=== PATIENT | male | born 1980 | race Caucasian/White ===

== ENCOUNTER 2016-12-17 06:17 | Day surgery (SDC) | payer OTHER ==
[2016-12-17] MEDS ORDERED: LACTATED RINGERS 1,000 ML IV ONE (06:44)
[2016-12-17] MEDS ORDERED: MIDAZOLAM 2 MG/2 ML VIAL IVP ONE (08:00)
[2016-12-17] MEDS ORDERED: fentaNYL 100 MCG/2 ML VIAL IVP ONE (08:00)
--- NOTE | 2016-12-17 08:54 | SURGERY HX AND PHYSICAL(T) ---
Surgical History & Physical - PMH/PSH/Social Hx Does the pt have a hx of MRSA?: No Eyes, Ears, Nose, Throat: None Cardiovascular: Other Respiratory: None Skin: None Endocrine/Autoimmune: None Gastrointestinal: GERD, Other Urinary: None Musculoskeletal: Osteoarthritis, Chronic back pain Psychiatric: None Orthopedic: ACL reconstruction Cardiothoracic: Vascular surgery, Other Eyes Ears Nose Throat (EENT): Other - Home Meds and Allergies Home Medications: Aspirin [Adult Low Dose Aspirin EC] 81 mg PO PRN PRN 12/14/16 Gabapentin 1 tab PO TID 12/14/16 Omeprazole [PriLOSEC] 20 mg PO PRN PRN 12/14/16 DULoxetine [Cymbalta] 20 mg ORAL DAILY 12/17/16 Allergies/Adverse Reactions: Allergies Allergy/AdvReac Type Severity Reaction Status Date / Time No Known Drug Allergies Allergy Verified 12/14/16 14:34 - Vital Signs Temperature: 36 C Respiratory Rate: 16 O2 Saturation: 98 Weight (kg): 93.3 kg Height: 1.83 m - Patient Review Patient Review: Problems were reviewed with the patient during this visit. Medications were reviewed with the patient during this visit. Allergies were reviewed this patient during this visit. Pertinent Tests Reviewed: All pertitent test for this patient were reviewed.
[2016-12-17 09:16] VITALS: BP 99/63
== END 2016-12-17 06:18 | disposition home or self-care (01) ==
LOC: SDS 06:17
PROVIDERS: ATTEND Surgery
PROC: 0DJD8ZZ Inspection of Lower Intestinal Tract, Via Natural or Artificial Opening Endoscopic (ICD-10-PCS; principal; 2016-12-17 07:30)
DX: K62.5 Hemorrhage of anus and rectum (principal); K64.8 Other hemorrhoids; K21.9 Gastro-esophageal reflux disease without esophagitis; Z83.79 Family history of other diseases of the digestive system; Z87.891 Personal history of nicotine dependence; Z79.82 Long term (current) use of aspirin
CPT/HCPCS: 45378; J7120